=== PATIENT | female | born 1930 | race Caucasian/White ===

== ENCOUNTER → 2019-03-30 | Outpatient (CLI) | payer OTHER, MEDICARE ==
[~2019-03-30] MED LIST: CELEXA 10 MG TA10 M1 PO; DICLOFENAC SOD50 M1 PO; DIOVAN160 MG PO; ELIQUIS2.5 MG PO; FISH OIL 1,001000 M3 PO; FLONASE 0.05%50 MCG NASAL; KLOR-CON 10 ER10 MEQ PO; LASIX 40 MG TAB40 MG PO; PEPCID40 MG PO; PRILOSEC OTC20 MG PO; TOPROL XL50 MG PO; ULTRAM 50MG TAB50 MG PO; VITAMIN D3 COM1 EACH PO; ZYRTEC10 M4 PO
== END ==
LOC: NUC 11:02
DX: R07.9 Chest pain, unspecified (principal); I10 Essential (primary) hypertension; E78.5 Hyperlipidemia, unspecified; I25.10 Atherosclerotic heart disease of native coronary artery without angina pectoris; Z88.8 Allergy status to other drugs, medicaments and biological substances; Z88.2 Allergy status to sulfonamides; Z79.899 Other long term (current) drug therapy

== ENCOUNTER → 2019-04-11 | Outpatient (CLI) | payer OTHER, MEDICARE ==
[~2019-04-11] VITALS: Ht 162.6 cm; Wt 109.0 kg
[2019-04-11 10:16] LABS: HEMATOCRIT 38.2 % (37.0-47.0); HEMOGLOBIN 12.5 gm/dL (12.0-15.0); MCHC 32.8 g/dL (28.0-37.0); MCV 97.6 fL (80.0-100.0); RBC 3.91 mil/uL (4.20-5.00); RDW 14.5 % (10.5-14.5)
[2019-04-11 10:17] VITALS: BP 176/64
[2019-04-11 10:28] LABS: CALCIUM 9.1 mg/dL (8.5-10.1); CREATININE 1.1 mg/dL (0.6-1.0); POTASSIUM 4.1 mmol/L (3.5-5.1)
--- NOTE | 2019-04-11 16:28 | CATHLAB ---
[facility] [address] [place] [address] INVASIVE PROCEDURE REPORT Name: CHRIS BARBOUR [id number] Admission: 04/11/19 Attend Phys: Hans Garnica MD Discharge: Date of : 08/[birth year] Report #: [id number] THIS REPORT FOR: //name// APPROVED REPORT Study performed: 04/11/2019 10:41:38 Patient Details Patient Status: Out-Patient Room #: The patient is a 88 year-old female Event Personnel Hans Garnica Crystal Syrup Maker, Josue Spence RN, Teddy Maldonado RTR Karen Kaufman David Monitor Procedures Performed Left Heart Cath w/or w/o Coronaries [id number] [facility] Indication Dyspnea, Positive stress test, Chest pain Risk Factors HypercholesterolemiaPhysical Activity, Hypertension Procedure Narrative The Right Wrist^ was infiltrated with 1% Lidocaine subcutaneous anesthesia. A TRANSRADIAL SLENDER 6F GLIDESHEATH KIT #[id number] sheath was inserted into the Right Radial Artery^. Coronary angiography was performed using coronary diagnostic catheters. The right coronary system was accessed and visualized with a 5FR JR 4 #[id number] catheter. The left coronary system was accessed and visualized with a 5FR JL 3.5 #[id number] catheter. The left ventricle was accessed and visualized with a 5FR PIG 145 ANGLED #[id number] catheter. Left ventricular/Aortic Valve gradient assessed via catheter pullback. Left ventriculogram was performed in 30 degree projection. Closure device was deployed with a Fr VASC BAND XL 29CM #[id number]. The patient tolerated the procedure well and there were no complications associated with the procedure. There was no hematoma. Intraoperative Conscious Sedation Sedation start time: 11.14 Case end Time: 11.43 Fentanyl 50 mcg Versed 1 mg Fluoro Time: 4.[address] [facility] [place] [address] INVASIVE PROCEDURE REPORT Name: CHRIS BARBOUR Room #: REG [facility].#: [id number] Admission: 04/11/19 Attend Phys: Hans Garnica MD Discharge: Date of : 08/[birth year] Report #: [id number] Dose: DAP 4645.00 cGycm2 521 mGy Contrast Type and Amount: Visipaque 90 ml Coronary Angiography The patient's coronary anatomy is right dominant. Diagnostic Cath Left Main This is a large caliber vessel, patent with no flow-limiting lesions. LAD This is a moderate size caliber vessel, traversing the anterior wall and wrapping around the apex. There is a moderate stenosis in the mid segment, 50%. Diagonal 1 This is a small-caliber vessel, patent with no flow-limiting lesions. Circumflex This is a moderate size caliber vessel, supplying 2 obtuse marginal arteries. OM1 This is a moderate size caliber vessel with mild disease proximally. OM2 This is a small to moderate size caliber vessel, with mild disease proximally. Right Coronary This is a dominant vessel, with mild disease in the midsegment. R PDA This is a patent vessel, with no flow-limiting lesions. RPLV This is a patent vessel, with no flow-limiting lesions. Left Ventriculography The left ventricle is normal in size with normal contractility. The left ventricular ejection fraction is estimated to be >55%. Hemodynamics The aortic pressure is 121/62 mmHg with a mean of 87 mmHg. The left ventricular pressure is 148/7 mmHg with a mean of mmHg. The left ventricular end diastolic pressure is 24 mmHg. There was no gradient across the aortic valve upon pullback. Pullback from the left ventricle to the aorta revealed no gradient across the aortic valve. Conclusion 1. 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 2. 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 [facility] [address] [place] [address] INVASIVE PROCEDURE REPORT Name: CHRIS BARBOUR Room #: REG [facility]#: [id number] Admission: 04/11/19 Attend Phys: Hans Garnica MD Discharge: Date of : 08/[birth year] Report #: [id number] 3. There is normal LV systolic function. 4. Recommend aggressive risk factor management. <ELECTRONICALLY SIGNED> By: Hans Garnica MD 04/11/19 1628 1628 1628 Hans Garnica MD /INF
--- NOTE | 2019-04-12 16:51 | EKG ---
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: GEN : [id number] Requested By: Hans Garnica Order Number: [id number] MD: Kristopher Hinojosa Measurements Intervals [place] Rate: 64 P: 48 PA: 177 QRS: -22 QRSD: 102 T: 7 QT: 410 QTc: 423 Interpretive Statements Sinus rhythm RSR' in V1 or V2, probably normal variant No previous ECG available for comparison Electronically Signed On 04-12-2019 16:51:25 HOT END OPERATOR by Kristopher Hinojosa [email or web address] <ELECTRONICALLY SIGNED> By: Kristopher Hinojosa MD, [facility] 04/12/19 1651 [id number] [id number] Kristopher Hinojosa MD, FACC /EPI
== END | disposition home or self-care (01) ==
LOC: CATH 09:29
PROVIDERS: Internal Medicine Cardiovascular Disease
DX: R07.9 Chest pain, unspecified (principal); I25.10 Atherosclerotic heart disease of native coronary artery without angina pectoris; I10 Essential (primary) hypertension; E78.00 Pure hypercholesterolemia, unspecified; E78.5 Hyperlipidemia, unspecified; E66.09 Other obesity due to excess calories; Z98.890 Other specified postprocedural states; Z79.01 Long term (current) use of anticoagulants; Z79.899 Other long term (current) drug therapy